=== PATIENT | female | born 1945 | race Caucasian/White ===

== ENCOUNTER 2025-04-12 06:00 | Day surgery (SDC) | payer OTHER, MEDICAID ==
[~2025-04-12 06:00] MED LIST: KETOROLAC TROMETHAMINE 0.5% 5 ML OPHTHALMIC SOLUTION ONE; MOXIFLOXACIN HCL 0.5% 3 ML OPHTHALMIC SOLUTION ONE; PHENYLEPHRINE HCL 2.5% 2 ML OPHTHALMIC SOLUTION ONE; TROPICAMIDE 1% 2 ML OPHTHALMIC SOLUTION ONE
[2025-04-12] MEDS: TROPICAMIDE 1% 2 ML OPHTHALMIC SOLUTION OD SCH (06:52)
[2025-04-12] MEDS: KETOROLAC TROMETHAMINE 0.5% 5 ML OPHTHALMIC SOLUTION OD SCH (06:52)
[2025-04-12] MEDS: RINGERS SOLUTION,LACTATED 500 ML IV ONE (06:52)
[2025-04-12] MEDS: PHENYLEPHRINE HCL 2.5% 2 ML OPHTHALMIC SOLUTION OD SCH (06:52)
[2025-04-12] MEDS: MOXIFLOXACIN HCL 0.5% 3 ML OPHTHALMIC SOLUTION OD SCH (06:53)
[2025-04-12] MEDS: BALANCED SALT 15 ML OPHTHALMIC IRRIG.SOLN ONE (07:49)
[2025-04-12] MEDS: LIDOCAINE/PF 1% 2 ML VIAL ONE (07:50)
[2025-04-12] MEDS: EPINEPHrine 1:1,000 [1 MG/ML] VIAL ONE (07:50)
[2025-04-12] MEDS: TETRACAINE HCL/PF 0.5% 4 ML OPHTHALMIC SOLUTION ONE (07:51)
[2025-04-12] MEDS: POVIDONE-IODINE 5% 30 ML OPHTHALMIC SOLUTION ONE (07:51)
[2025-04-12] MEDS ORDERED: FentaNYL CITRATE PF 100 MCG/2 ML VIAL ONE (12:00)
[2025-04-12] MEDS ORDERED: MIDAZOLAM HCL 2 MG/2 ML VIAL ONE (12:00)
== END 2025-04-12 09:05 | disposition home or self-care (01) ==
LOC: SURGERY 06:00
PROVIDERS: ATTEND Ophthalmology
DX: H25.11 Age-related nuclear cataract, right eye (principal); I10 Essential (primary) hypertension; Z79.899 Other long term (current) drug therapy; G89.29 Other chronic pain; Z90.710 Acquired absence of both cervix and uterus
CPT/HCPCS: 93005; J0171; J2250; J3010; J3490